=== PATIENT | female | born 1945 | race Caucasian/White ===

== ENCOUNTER 2022-04-29 17:25 | Emergency (ER) | payer MEDICARE ==
[~2022-04-29] VITALS: Ht 162.6 cm; Wt 46.0 kg
[2022-04-29 18:40] VITALS: BP 164/95
== END 2022-04-29 20:52 | disposition home or self-care (01) ==
LOC: ER 17:26
DX: S52.502A Unspecified fracture of the lower end of left radius, initial encounter for closed fracture (principal); M25.532 Pain in left wrist; H53.2 Diplopia; W19.XXXA Unspecified fall, initial encounter; Y93.89 Activity, other specified; Y92.89 Other specified places as the place of occurrence of the external cause; Y99.8 Other external cause status
CPT/HCPCS: 29125; 70450; 73110; 99284; A4565; A6449

== ENCOUNTER 2022-05-04 09:19 | Emergency (ER) | payer MEDICARE ==
[~2022-05-04] VITALS: Ht 162.6 cm; Wt 47.5 kg
[2022-05-04 10:18] VITALS: BP 145/76
== END 2022-05-04 16:14 | disposition home or self-care (01) ==
LOC: ER 09:20
DX: H53.2 Diplopia (principal)
CPT/HCPCS: 70551; 99284

== ENCOUNTER 2023-05-07 20:00 | Emergency (ER) | payer MEDICARE, OTHER ==
[~2023-05-07] VITALS: Ht 157.5 cm; Wt 53.0 kg
[2023-05-07 20:18] VITALS: BP 116/75; PULSE 68; RESP 18; TEMP 98.2; O2SAT 98
== END 2023-05-08 01:30 | disposition left against medical advice (07) ==
LOC: ER 20:01
DX: N39.0 Urinary tract infection, site not specified (principal); Z53.21 Procedure and treatment not carried out due to patient leaving prior to being seen by health care provider
CPT/HCPCS: 99281

== ENCOUNTER 2023-07-19 12:22 | Emergency (ER) | payer MEDICARE, OTHER ==
[~2023-07-19] VITALS: Ht 154.9 cm; Wt 48.4 kg
[2023-07-19 13:05] LABS: BILIRUBIN,URINE NEGATIVE (Neg); CLARITY,URINE CLOUDY (Clear); COLOR,URINE YELLOW (Yellow); GLUCOSE, URINE NEGATIVE (Neg); KETONES,URINE NEGATIVE (Neg); LEUKOCYTE ESTERASE ,URINE SMALL (Neg); NITRITES, URINE NEGATIVE (Neg); OCCULT BLOOD,URINE NEGATIVE (Neg); PROTEIN,URINE TRACE mg/dl (Neg); UROBILINOGEN,URINE 0.2 E.U/dL (0.2-1.0)
[2023-07-19 13:06] LABS: UA COLLECTION TYPE CLN CATCH MIDSTREAM
[2023-07-19 13:12] LABS: BACTERIA,URINE 4+ /HPF (Neg); MUCUS STRANDS FEW /LPF (Neg); RBC,URINE NONE SEEN /HPF (0-2); SQUAMOUS EPITHELIAL CELL,UR MANY /LPF (FEW); WBC,URINE 0-4 /HPF (0-4)
[2023-07-19 13:30] LABS: BASOPHILS % (AUTO) 0.7 % (0-1); EOSINOPHILS % (AUTO) 0.9 % (0-6); HEMATOCRIT 44.6 % (35.0-45.0); HEMOGLOBIN 15.2 g/dl (12.0-16.0); LYMPHOCYTES # (AUTO) 0.4 X10'3 (1.1-4.8); LYMPHOCYTES % (AUTO) 9.4 % (21-51); MEAN CORPUSCULAR HEMOGLOBIN 32.2 PG (27.0-31.0); MEAN CORPUSCULAR VOLUME 94.8 FL (78-98); MEAN PLATELET VOLUME 8.4 FL (7.4-10.4); MONOCYTES # (AUTO) 0.3 X10'3 (0-0.9); MONOCYTES % (AUTO) 7.8 % (2-12); NEUTROPHILS # (AUTO) 3.6 X10'3 (1.8-7.7); NEUTROPHILS % (AUTO) 81.2 % (42-75); PLATELET COUNT 168 X10'3 (140-440); RED BLOOD COUNT 4.71 X10'6 (4.20-5.60); RED CELL DISTRIBUTION WIDTH 13.4 % (11.5-14.5); WHITE BLOOD COUNT 4.4 X10'3 (4.5-11.0)
[2023-07-19 13:47] LABS: ALANINE AMINOTRANSFERASE 25 U/L (12-78); ALBUMIN 4.1 G/DL (3.4-5.0); ALBUMIN/GLOBULIN RATIO 1.5 (1.1-1.5); ALKALINE PHOSPHATASE 88 IU/L (46-116); ANION GAP 4 (8-16); ASPARTATE AMINO TRANSFERASE 26 U/L (10-37); BILIRUBIN,TOTAL 0.6 MG/DL (0.1-1.0); BLOOD UREA NITROGEN 22 MG/DL (7-18); BUN/CREATININE RATIO 26.2 (10.0-20.0); CHLORIDE 106 MMOL/L (99-107); CREATININE 0.84 MG/DL (0.40-0.90); GLUCOSE 108 MG/DL (70-104); LIPASE 54 U/L (16-77); POTASSIUM 3.8 MMOL/L (3.5-5.1); SODIUM 141 MMOL/L (135-145); TOTAL CARBON DIOXIDE 30.8 MMOL/L (24-32); TOTAL PROTEIN 6.9 G/DL (6.4-8.2); eCRCL 42 ML/MIN; eGFR 66 ML/MIN
[2023-07-20 02:58] LABS: ETHANOL < 10 MG/DL (<10); THYROID STIMULATING HORMONE 1.67 ulU/ml (0.34-4.50)
[2023-07-20] MEDS ORDERED: NO HOME MEDS (06:23)
[2023-07-20 07:17] LABS: URINE AMPHETAMINE SCREEN NEGATIVE (Neg); URINE BARBITUATE SCREEN NEGATIVE (Neg); URINE BENZODIAZEPINES SCREEN NEGATIVE (Neg); URINE CANNABINOID SCREEN NEGATIVE (Neg); URINE COCAINE SCREEN NEGATIVE (Neg); URINE METHADONE SCREEN NEGATIVE (Neg); URINE OPIATE SCREEN NEGATIVE (Neg); URINE PHENCYCLIDINE SCREEN NEGATIVE (Neg)
[2023-07-25 14:08] LABS: BILIRUBIN,URINE NEGATIVE (Neg); CLARITY,URINE SLIGHTLY CLOUDY (Clear); COLOR,URINE YELLOW (Yellow); GLUCOSE, URINE NEGATIVE (Neg); KETONES,URINE NEGATIVE (Neg); LEUKOCYTE ESTERASE ,URINE NEGATIVE (Neg); NITRITES, URINE NEGATIVE (Neg); OCCULT BLOOD,URINE TRACE-INTACT (Neg); PROTEIN,URINE NEGATIVE (Neg); UROBILINOGEN,URINE 0.2 E.U/dL (0.2-1.0)
[2023-07-25 14:19] LABS: UA COLLECTION TYPE CLN CATCH MIDSTREAM
[2023-07-25 14:20] LABS: BACTERIA,URINE 1+ /HPF (Neg); MUCUS STRANDS NONE SEEN /LPF (Neg); RBC,URINE 0-2 /HPF (0-2); SQUAMOUS EPITHELIAL CELL,UR FEW /LPF (FEW); WBC,URINE 0-4 /HPF (0-4)
[2023-07-27] MEDS ORDERED: simethicone 125mg capsule PO ONE (06:21)
[2023-08-01] MEDS ORDERED: tuberculin, purif. prot. deriv. 5 units/0.1ml ID ONE (13:45)
[2023-08-04] MEDS: nicotine 21mg patch - 24 hr TD SCH (08:00)
[2023-08-05] MEDS: nicotine 21mg patch - 24 hr TD SCH (07:58)
[2023-08-06] MEDS: nicotine 21mg patch - 24 hr TD SCH (08:00)
[2023-08-07] MEDS: nicotine 21mg patch - 24 hr TD SCH (08:00)
[2023-08-08] MEDS: nicotine 21mg patch - 24 hr TD SCH (08:00)
[2023-08-09] MEDS: nicotine 21mg patch - 24 hr TD SCH (07:58)
[2023-08-10] MEDS: nicotine 21mg patch - 24 hr TD SCH (08:00)
[2023-08-13] MEDS ORDERED: NO HOME MEDS (12:42)
[2023-08-14 19:30] VITALS: BP 122/90; PULSE 74; TEMP 97.9; O2SAT 99
[2023-08-15 07:00] VITALS: RESP 16
== END 2023-08-15 14:06 | disposition still patient (30) ==
LOC: ER 12:23
DX: F29 Unspecified psychosis not due to a substance or known physiological condition (principal); Z20.822 Contact with and (suspected) exposure to COVID-19
CPT/HCPCS: 36415; 70450; 80053; 80305; 80320; 81001; 83690; 84443; 85025; 87811; 96372; 99285

== ENCOUNTER 2024-07-12 09:46 | Emergency (ER) | payer MEDICARE, OTHER ==
[~2024-07-12] VITALS: Ht 165.1 cm; Wt 52.0 kg
[~2024-07-12 09:46] MED LIST: NO HOME MEDS
[2024-07-12] MEDS ORDERED: APIX2.5T PO (13:57)
[2024-07-12 14:21] VITALS: BP 151/84; PULSE 76; RESP 16; TEMP 98.4; O2SAT 99
== END 2024-07-12 14:21 | disposition home or self-care (01) ==
LOC: ER 09:47
DX: I82.402 Acute embolism and thrombosis of unspecified deep veins of left lower extremity (principal); F03.90 Unspecified dementia, unspecified severity, without behavioral disturbance, psychotic disturbance, mood disturbance, and anxiety
CPT/HCPCS: 99283

== ENCOUNTER 2024-08-23 12:33 | Inpatient (IN) | payer MEDICARE, OTHER ==
[~2024-08-23] VITALS: Ht 162.6 cm; Wt 125.0 kg
[~2024-08-23 12:33] MED LIST changes: +APIX2.5T PO
[2024-08-23 13:52] LABS: BASOPHILS % (AUTO) 0.8 % (0-1); EOSINOPHILS # (AUTO) 0.1 X10'3 (0-0.9); EOSINOPHILS % (AUTO) 1.3 % (0-6); HEMATOCRIT 42.1 % (35.0-45.0); HEMOGLOBIN 14.6 g/dl (12.0-16.0); LYMPHOCYTES # (AUTO) 0.6 X10'3 (1.1-4.8); LYMPHOCYTES % (AUTO) 10.6 % (21-51); MEAN CORPUSCULAR HEMOGLOBIN 32.6 PG (27.0-31.0); MEAN CORPUSCULAR HGB CONC 34.7 g/dL (33.0-36.5); MEAN CORPUSCULAR VOLUME 93.9 FL (78-98); MONOCYTES # (AUTO) 0.5 X10'3 (0-0.9); MONOCYTES % (AUTO) 9.2 % (2-12); NEUTROPHILS # (AUTO) 4.4 X10'3 (1.8-7.7); NEUTROPHILS % (AUTO) 78.1 % (42-75); PLATELET COUNT 181 X10'3 (140-440); RED BLOOD COUNT 4.48 X10'6 (4.20-5.60); RED CELL DISTRIBUTION WIDTH 13.5 % (11.5-14.5); WHITE BLOOD COUNT 5.6 X10'3 (4.5-11.0)
[2024-08-23 14:14] LABS: ALANINE AMINOTRANSFERASE 18 U/L (12-78); ALKALINE PHOSPHATASE 81 IU/L (46-116); ANION GAP 6 (8-16); ASPARTATE AMINO TRANSFERASE 19 U/L (10-37); BILIRUBIN,TOTAL 0.6 MG/DL (0.1-1.0); CHLORIDE 109 MMOL/L (99-107); POTASSIUM 3.3 MMOL/L (3.5-5.1); SODIUM 144 MMOL/L (135-145); TOTAL PROTEIN 7.3 G/DL (6.4-8.2)
[2024-08-23 14:29] LABS: ALBUMIN 3.9 G/DL (3.4-5.0); ALBUMIN/GLOBULIN RATIO 1.1 (1.1-1.5); BLOOD UREA NITROGEN 18 MG/DL (7-18); BUN/CREATININE RATIO 19.8 (10.0-20.0); CALCIUM 8.9 MG/DL (8.5-10.1); CREATININE 0.91 MG/DL (0.40-0.90); GLUCOSE 66 MG/DL (70-104); eCRCL 45 ML/MIN; eGFR 60 ML/MIN
[2024-08-23 15:57] LABS: BILIRUBIN,URINE NEGATIVE (Neg); CLARITY,URINE SLIGHTLY CLOUDY (Clear); COLOR,URINE YELLOW (Yellow); GLUCOSE, URINE NEGATIVE (Neg); KETONES,URINE NEGATIVE (Neg); LEUKOCYTE ESTERASE ,URINE SMALL (Neg); NITRITES, URINE NEGATIVE (Neg); OCCULT BLOOD,URINE TRACE-INTACT (Neg); PROTEIN,URINE NEGATIVE (Neg); UROBILINOGEN,URINE 0.2 E.U/dL (0.2-1.0)
[2024-08-23 16:10] LABS: UA COLLECTION TYPE NON-SPECIFIED
[2024-08-23 16:12] LABS: BACTERIA,URINE 3+ /HPF (Neg)
[2024-08-23 16:13] LABS: AMORPHOUS URATES 1+; MUCUS STRANDS FEW /LPF (Neg); SQUAMOUS EPITHELIAL CELL,UR MODERATE /LPF (FEW); TRANSITIONAL EPI CELLS,URINE FEW /HPF
[2024-08-23] MEDS ORDERED: magnesium Cl slow-release 64mg tablet PO PRN (17:20)
[2024-08-23] MEDS ORDERED: potassium Cl 40MEQ/1/2NS 520ml 520 ML IV PRN (17:20)
[2024-08-23] MEDS ORDERED: acetaminophen 325mg tablet PO PRN (17:20)
[2024-08-23] MEDS ORDERED: mag hydrox/Alum hydrox/simeth 30ml oral suspension PO PRN (17:20)
[2024-08-23] MEDS ORDERED: magnesium sulf-water 4G/100mL 100 ML IV PRN (17:20)
[2024-08-23] MEDS ORDERED: magnesium hydroxide 30ml (MOM) UD suspension PO PRN (17:20)
[2024-08-23] MEDS ORDERED: ondansetron/PF 4mg/2ml inj IV PRN (17:20)
[2024-08-23] MEDS ORDERED: magnesium sulf-water 2g/50mL 50 ML IV PRN (17:20)
[2024-08-23] MEDS ORDERED: potassium Cl 20 mEq SR tablet PO PRN (17:20)
[2024-08-23] MEDS ORDERED: morphine 2 MG/ML inj. syringe IV PRN (17:20)
[2024-08-23] MEDS ORDERED: DEXTROSE 15 GM of carb/4 tabs (each vial/BOTTLE has 4 tablets) PO PRN (18:35)
[2024-08-23] MEDS: normal saline 1000ml 1,000 ML IV SCH (19:00)
[2024-08-23] MEDS: docusate sod 100mg capsule PO SCH (20:00)
[2024-08-23] MEDS: K and/or MAG REPLACEMENT MC SCH (20:00)
[2024-08-23] MEDS ORDERED: PERM60CR4 (20:35)
[2024-08-23] MEDS ORDERED: APIX5TAB3 PO (20:35)
[2024-08-23] MEDS ORDERED: POTA-207 PO (20:35)
[2024-08-23] MEDS ORDERED: QUET25TA36 PO (20:35)
[2024-08-23] MEDS ORDERED: QUET50TA24 (20:35)
[2024-08-23] MEDS ORDERED: DONE-46 PO (20:35)
[2024-08-23] MEDS ORDERED: FURO20TA4 PO (20:35)
[2024-08-23 23:04] LABS: MAGNESIUM 2.3 MG/DL (1.5-2.4); POTASSIUM 3.3 MMOL/L (3.5-5.1)
[2024-08-23] MEDS: QUEtiapine 25mg tablet PO STA ×2 (23:15→23:31)
[2024-08-23] MEDS: LORazepam 2 mg/ml vial IM STA (23:32)
[2024-08-24] MEDS: CefTRIAXone/D5W-Rocephin 1gm 50 ML IV SCH (02:46)
[2024-08-24 04:37] LABS: EOSINOPHILS # (AUTO) 0.1 X10'3 (0-0.9); LYMPHOCYTES # (AUTO) 0.7 X10'3 (1.1-4.8); MEAN CORPUSCULAR HEMOGLOBIN 32.2 PG (27.0-31.0); MEAN CORPUSCULAR HGB CONC 34.3 g/dL (33.0-36.5); MONOCYTES # (AUTO) 0.5 X10'3 (0-0.9); PLATELET COUNT 134 X10'3 (140-440)
[2024-08-24 04:39] LABS: BASOPHILS % (AUTO) 0.4 % (0-1); EOSINOPHILS % (AUTO) 1.3 % (0-6); HEMATOCRIT 40.9 % (35.0-45.0); LYMPHOCYTES % (AUTO) 11.2 % (21-51); MEAN PLATELET VOLUME 9.9 FL (7.4-10.4); MONOCYTES % (AUTO) 8.2 % (2-12); NEUTROPHILS # (AUTO) 4.8 X10'3 (1.8-7.7); NEUTROPHILS % (AUTO) 78.9 % (42-75); RED BLOOD COUNT 4.35 X10'6 (4.20-5.60); RED CELL DISTRIBUTION WIDTH 13.3 % (11.5-14.5)
[2024-08-24 05:00] LABS: ALANINE AMINOTRANSFERASE 19 U/L (12-78); ALBUMIN 3.2 G/DL (3.4-5.0); ALBUMIN/GLOBULIN RATIO 0.9 (1.1-1.5); ALKALINE PHOSPHATASE 69 IU/L (46-116); ANION GAP 9 (8-16); BILIRUBIN,TOTAL 0.9 MG/DL (0.1-1.0); BLOOD UREA NITROGEN 16 MG/DL (7-18); BUN/CREATININE RATIO 25.8 (10.0-20.0); CALCIUM 8.8 MG/DL (8.5-10.1); CHLORIDE 107 MMOL/L (99-107); CREATININE 0.62 MG/DL (0.40-0.90); GLUCOSE 110 MG/DL (70-104); MAGNESIUM 2.3 MG/DL (1.5-2.4); SODIUM 141 MMOL/L (135-145); TOTAL CARBON DIOXIDE 25.2 MMOL/L (24-32); TOTAL PROTEIN 6.7 G/DL (6.4-8.2); eCRCL 66 ML/MIN; eGFR > 90 ML/MIN
[2024-08-24 05:02] LABS: ASPARTATE AMINO TRANSFERASE 39 U/L (10-37)
[2024-08-24] MEDS: furosemide 20MG tablet PO SCH (11:09)
[2024-08-24] MEDS: donepezil 5mg tablet PO SCH (11:09)
[2024-08-24 17:45] VITALS: BP 139/69; PULSE 68; RESP 16; TEMP 98; O2SAT 99
[2024-08-24 18:00] VITALS: BP 144/77; PULSE 69; RESP 17; TEMP 97.7; O2SAT 100
[2024-08-24 20:00] VITALS: RESP 17; O2SAT 100
[2024-08-24] MEDS: apixaban 5mg tablet PO SCH (20:22)
[2024-08-24] MEDS: QUEtiapine 25mg tablet PO SCH (20:22)
[2024-08-24 22:00] VITALS: BP 119/50; PULSE 78; RESP 15; TEMP 97.5; O2SAT 96
[2024-08-25 06:00] VITALS: BP 131/78; PULSE 72; RESP 18; TEMP 97.8; O2SAT 98
[2024-08-25 08:00] VITALS: RESP 16; O2SAT 94
[2024-08-25 10:00] VITALS: BP 98/80; PULSE 83; RESP 16; TEMP 98.4; O2SAT 94
[2024-08-25 11:41] LABS: BASOPHILS % (AUTO) 0.1 % (0-1); EOSINOPHILS # (AUTO) 0.1 X10'3 (0-0.9); EOSINOPHILS % (AUTO) 2.1 % (0-6); HEMATOCRIT 41.9 % (35.0-45.0); HEMOGLOBIN 14.2 g/dl (12.0-16.0); LYMPHOCYTES # (AUTO) 0.2 X10'3 (1.1-4.8); LYMPHOCYTES % (AUTO) 3.4 % (21-51); MEAN CORPUSCULAR HEMOGLOBIN 32.3 PG (27.0-31.0); MEAN CORPUSCULAR HGB CONC 33.8 g/dL (33.0-36.5); MEAN CORPUSCULAR VOLUME 95.5 FL (78-98); MONOCYTES # (AUTO) 0.2 X10'3 (0-0.9); MONOCYTES % (AUTO) 3.7 % (2-12); NEUTROPHILS # (AUTO) 5.1 X10'3 (1.8-7.7); NEUTROPHILS % (AUTO) 90.7 % (42-75); PLATELET COUNT 141 X10'3 (140-440); RED BLOOD COUNT 4.38 X10'6 (4.20-5.60); RED CELL DISTRIBUTION WIDTH 13.4 % (11.5-14.5); WHITE BLOOD COUNT 5.6 X10'3 (4.5-11.0)
[2024-08-25 11:49] LABS: ALANINE AMINOTRANSFERASE 18 U/L (12-78); ALBUMIN 3.2 G/DL (3.4-5.0); ALKALINE PHOSPHATASE 73 IU/L (46-116); ANION GAP 9 (8-16); ASPARTATE AMINO TRANSFERASE 20 U/L (10-37); BILIRUBIN,TOTAL 0.7 MG/DL (0.1-1.0); BLOOD UREA NITROGEN 14 MG/DL (7-18); BUN/CREATININE RATIO 17.1 (10.0-20.0); CALCIUM 8.2 MG/DL (8.5-10.1); CHLORIDE 108 MMOL/L (99-107); CREATININE 0.82 MG/DL (0.40-0.90); GLUCOSE 103 MG/DL (70-104); POTASSIUM 3.2 MMOL/L (3.5-5.1); SODIUM 141 MMOL/L (135-145); TOTAL CARBON DIOXIDE 24.3 MMOL/L (24-32); TOTAL PROTEIN 6.4 G/DL (6.4-8.2); eCRCL 50 ML/MIN; eGFR 67 ML/MIN
[2024-08-25] MEDS: potassium Cl 20 mEq SR tablet PO PRN (13:05)
[2024-08-25 18:00] VITALS: BP 120/86; PULSE 95; RESP 18; TEMP 99.4; O2SAT 94
[2024-08-25] MEDS: QUEtiapine 25mg tablet PO ONE (18:29)
[2024-08-25] MEDS: lactose-reduced food (Ensure Enlive) - 237ml bottle PO SCH (18:36)
[2024-08-25 20:00] VITALS: RESP 15; O2SAT 94
[2024-08-25 22:02] VITALS: BP 121/75; PULSE 86; RESP 14; TEMP 97.9; O2SAT 95
[2024-08-26 06:00] VITALS: BP 135/86; PULSE 68; RESP 14; TEMP 98.7; O2SAT 95
[2024-08-26 06:29] LABS: BASOPHILS % (AUTO) 0.5 % (0-1); EOSINOPHILS # (AUTO) 0.1 X10'3 (0-0.9); EOSINOPHILS % (AUTO) 2.6 % (0-6); HEMATOCRIT 38.8 % (35.0-45.0); HEMOGLOBIN 13.3 g/dl (12.0-16.0); LYMPHOCYTES # (AUTO) 0.3 X10'3 (1.1-4.8); LYMPHOCYTES % (AUTO) 10.1 % (21-51); MEAN CORPUSCULAR HEMOGLOBIN 32.2 PG (27.0-31.0); MEAN CORPUSCULAR HGB CONC 34.4 g/dL (33.0-36.5); MEAN CORPUSCULAR VOLUME 93.6 FL (78-98); MEAN PLATELET VOLUME 8.3 FL (7.4-10.4); MONOCYTES # (AUTO) 0.3 X10'3 (0-0.9); MONOCYTES % (AUTO) 7.7 % (2-12); NEUTROPHILS # (AUTO) 2.6 X10'3 (1.8-7.7); NEUTROPHILS % (AUTO) 79.1 % (42-75); PLATELET COUNT 132 X10'3 (140-440); RED BLOOD COUNT 4.14 X10'6 (4.20-5.60); RED CELL DISTRIBUTION WIDTH 13.4 % (11.5-14.5); WHITE BLOOD COUNT 3.3 X10'3 (4.5-11.0)
[2024-08-26 06:52] LABS: ALANINE AMINOTRANSFERASE 16 U/L (12-78); ALBUMIN 2.8 G/DL (3.4-5.0); ALKALINE PHOSPHATASE 63 IU/L (46-116); ANION GAP 9 (8-16); ASPARTATE AMINO TRANSFERASE 18 U/L (10-37); BILIRUBIN,TOTAL 0.7 MG/DL (0.1-1.0); BLOOD UREA NITROGEN 13 MG/DL (7-18); BUN/CREATININE RATIO 15.5 (10.0-20.0); CALCIUM 8.1 MG/DL (8.5-10.1); CHLORIDE 110 MMOL/L (99-107); CREATININE 0.84 MG/DL (0.40-0.90); GLUCOSE 95 MG/DL (70-104); POTASSIUM 3.2 MMOL/L (3.5-5.1); SODIUM 142 MMOL/L (135-145); TOTAL CARBON DIOXIDE 22.7 MMOL/L (24-32); TOTAL PROTEIN 5.7 G/DL (6.4-8.2); eCRCL 47 ML/MIN; eGFR 65 ML/MIN
[2024-08-26] MEDS: potassium Cl 20 mEq SR tablet PO SCH (08:00)
[2024-08-26] MEDS: QUEtiapine 25mg tablet PO SCH ×2 (09:33→15:17)
[2024-08-26] MEDS: potassium Cl 20 mEq SR tablet PO STA (09:34)
[2024-08-26 10:00] VITALS: BP 126/67; PULSE 68; RESP 15; TEMP 98.6; O2SAT 95
[2024-08-26] MEDS ORDERED: CEFD300C3 PO (11:56)
[2024-08-26] MEDS ORDERED: LACT1CAP26 PO (11:56)
== END 2024-08-26 16:10 | disposition home or self-care (01) | DRG 689 ==
LOC: ER 12:34 → UNDOADMIN 17:21 → ED HOLD 17:21 → ORTHO 4S 08-24 15:45
PROVIDERS: ADMIT Internal Medicine; ATTEND Internal Medicine
DX: N30.00 Acute cystitis without hematuria (principal); G93.41 Metabolic encephalopathy; N17.0 Acute kidney failure with tubular necrosis; E86.0 Dehydration; G30.9 Alzheimer's disease, unspecified; E87.6 Hypokalemia; E16.1 Other hypoglycemia; F02.80 Dementia in other diseases classified elsewhere, unspecified severity, without behavioral disturbance, psychotic disturbance, mood disturbance, and anxiety; Z88.6 Allergy status to analgesic agent; Z91.018 Allergy to other foods; Z79.01 Long term (current) use of anticoagulants; Z86.718 Personal history of other venous thrombosis and embolism
CPT/HCPCS: 36415; 70450; 73521; 80053; 81001; 83605; 83735; 84132; 84145; 85025; 87040; 87088; 92508; 92616; 93005; 97161; 97530; 99285; G0378; J0696; J2060; J7030

== ENCOUNTER 2024-09-17 08:18 | Emergency (ER) | payer MEDICARE, OTHER ==
[~2024-09-17] VITALS: Ht 162.6 cm; Wt 58.0 kg
[~2024-09-17 08:18] MED LIST changes: -APIX2.5T PO; +APIX5TAB3 PO; +CEFD300C3 PO; +DONE-46 PO; +FURO20TA4 PO; +LACT1CAP26 PO; -NO HOME MEDS; +PERM60CR4; +POTA-207 PO; +QUET25TA36 PO; +QUET50TA24
[2024-09-17 08:21] VITALS: TEMP 97.6
[2024-09-17 13:22] VITALS: BP 156/89; PULSE 68; RESP 15; O2SAT 97
== END 2024-09-17 13:24 | disposition home or self-care (01) ==
LOC: ER 08:18
DX: S22.32XA Fracture of one rib, left side, initial encounter for closed fracture (principal); F03.90 Unspecified dementia, unspecified severity, without behavioral disturbance, psychotic disturbance, mood disturbance, and anxiety; Z88.6 Allergy status to analgesic agent; Z79.899 Other long term (current) drug therapy; X58.XXXA Exposure to other specified factors, initial encounter; Y93.89 Activity, other specified; Y92.89 Other specified places as the place of occurrence of the external cause; Y99.8 Other external cause status
CPT/HCPCS: 70450; 71101; 99284

== ENCOUNTER 2024-12-28 16:53 | Emergency (ER) | payer MEDICARE, OTHER ==
[~2024-12-28] VITALS: Ht 162.6 cm; Wt 54.1 kg
--- NOTE | 2024-12-28 17:45 | Physician Documentation ---
History of Present Illness ~ Chief Complaint: Urinary Symptoms Stated Complaint: POSSIBLE UTI Time Seen by MD: 17:37 Primary Medical Doctor: Dr. Radha Painting in [facility]. Mental health: Dr. Jc Ybarra HPI Female with a history of severe dementia presents accompanied by her conservator due to several days of increased confusion, caregiver/conservative reports varinder ent took an at home UTI test which came back positive. Patient is reporting no symptoms however is quite confused. Family member does note that small amount of Ativan was added to patient's medication regimen over this past month that has be taken three to 4 times a week as needed for agitation but there has been no correlation between her generalized lethargy and confusion increase and this medication that they have noticed. Patient denies any pain Medication Reconciliation Allergies: Coded Allergies: aspirin (Verified Allergy, Unknown, 12/28/24) banana (Verified Allergy, Unknown, 12/28/24) Scheduled Apixaban (Eliquis), 1 TAB PO BID, (Reported) Cefdinir (Cefdinir), 1 CAP PO Q12H Donepezil Hcl (Donepezil Hcl), 1 TAB PO DAILY, (Reported) Furosemide (Furosemide), 1 TAB PO DAILY, (Reported) Lactobacillus Rhamnosus (Culturelle), 1 CAP PO DAILY Potassium Chloride* (K-Dur*), 1 TAB PO DAILY, (Reported) Quetiapine Fumarate (Quetiapine Fumarate), 1 TAB PO HS, (Reported) Miscellaneous Medications Permethrin (Permethrin), (Reported) Quetiapine Fumarate (Quetiapine Fumarate), (Reported) Past Medical History 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 GENERAL: Alert, nontoxic appearing, no apparent distress. HEENT: RESPIRATORY: No increased work of breathing, no respiratory distress, speaking in full clear sentences CHEST: CV: BACK: MUSCULOSKELETAL: SKIN: NEURO: Confused at baseline, PSYCH: General Appearance General: Patient is awake, alert, answering questions inappropriately. Slow to respond Head: Normocephalic and atraumatic. Eyes: Conjunctival normal. EOMI. PERRL. ENT: Mucous membranes moist. Neck: Supple, trachea is midline. Chest: Clear to auscultation bilaterally without rales, rhonchi, or wheezes. There is no accessory muscle use or retractions. Cardiac: RRR without murmurs, gallops, or rubs. Abd: Soft, nondistended, nontender, with normoactive bowel sounds. No guarding, rebound, or rigidity. Progress Results/Orders Results/Orders Vital Signs 12/28/24 12/28/24 12/28/24 17:14 19:13 20:45 Temp 97.7 Pulse 97 83 Resp 16 14 16 B/P (MAP) 132/68 134/85 (101) Pulse Ox 94 88 Laboratory Tests Test 12/28/24 17:49 12/28/24 20:21 White Blood Count 4.4 L Red Blood Count 4.97 Hemoglobin 15.7 Hematocrit 46.2 H Mean Corpuscular Volume 93.0 Mean Corpuscular Hemoglobin 31.6 H Mean Corpuscular Hemoglobin Concent 34.0 Red Cell Distribution Width 12.9 Platelet Count 200 Mean Platelet Volume 8.0 Neutrophils (%) (Auto) 75.2 H Lymphocytes (%) (Auto) 12.8 L Monocytes (%) (Auto) 8.2 Eosinophils (%) (Auto) 3.2 Basophils (%) (Auto) 0.6 Neutrophils # (Auto) 3.3 Lymphocytes # (Auto) 0.6 L Monocytes # (Auto) 0.4 Eosinophils # (Auto) 0.1 Basophils # (Auto) 0.0 CBC Comment Sodium Level 145 Potassium Level 4.1 Chloride Level 109 H Carbon Dioxide Level 27.7 Anion Gap 8 Blood Urea Nitrogen 25 H Creatinine 0.99 H Estimated GFR/1.73 m2 54 BUN/Creatinine Ratio 25.3 H Glucose Level 135 H Calcium Level 9.0 Total Bilirubin 0.4 Aspartate Amino Transf (AST/SGOT) 21 Alanine Aminotransferase (ALT/SGPT) 22 Alkaline Phosphatase 96 Total Protein 6.8 Albumin 3.7 Globulin 3.1 Albumin/Globulin Ratio 1.2 Chemistry Comments Urine Specimen Description Straight cath Urine Color Yellow Urine Clarity Clear Urine pH 6.0 Urine Specific [place] 1.020 Urine Protein Negative Urine Glucose (UA) Negative Urine Ketones Negative Urine Occult Blood Negative Urine Nitrite Negative Urine Bilirubin Negative Urine Urobilinogen 0.2 Urine Leukocyte Esterase Negative Urine Culture Indicated Not ind Volume Urine Centrifuged 10 ml Urine Comment Medical Decision Making Findings MSE performed in triage and patient returned to ED lobby by nursing staff Patient presents to the emergency room with gradual increase in confusion over the past month. Differentials include but are not limited to metabolic encephalopathy, medication reaction/side effect, urinary tract infection, electrolyte disturbances therefore emergent labs ordered which were reassuring for no major pathologic derangements. Urine is clear. Neurologic exam is reassuring for no focal neural deficits however patient was confused. Offered admission for possible stroke workup although this is very low yield given patient's gradual increase over the past month. After discussing the risks and benefits and alternatives family and janitor caretaker would prefer patient to go back to her living facility for continued workup and we will return if symptoms worsen or change. Departure Disposition: HOME / SELF CARE / HOMELESS Impression: Primary Impression: Altered mental status Condition: Fair Discharge Instructions: Altered Mental Status Referrals: NO PRIMARY CARE PROVIDER (PCP) Education Educated: Family Educated regarding: need for follow up Signature Scribe Signature: No scribe Attestation: The note accurately reflects work and decisions made by me.Sebastian Puga MD 12/28/24 21:04 LONNY NOEL December 28, 2024 17:45 SEBASTIAN PUGA MD December 28, 2024 20:29
[2024-12-28 17:58] LABS: BASOPHILS % (AUTO) 0.6 % (0-1); EOSINOPHILS # (AUTO) 0.1 X10'3 (0-0.9); EOSINOPHILS % (AUTO) 3.2 % (0-6); HEMATOCRIT 46.2 % (35.0-45.0); HEMOGLOBIN 15.7 g/dl (12.0-16.0); LYMPHOCYTES # (AUTO) 0.6 X10'3 (1.1-4.8); LYMPHOCYTES % (AUTO) 12.8 % (21-51); MEAN CORPUSCULAR HEMOGLOBIN 31.6 PG (27.0-31.0); MONOCYTES # (AUTO) 0.4 X10'3 (0-0.9); MONOCYTES % (AUTO) 8.2 % (2-12); NEUTROPHILS # (AUTO) 3.3 X10'3 (1.8-7.7); NEUTROPHILS % (AUTO) 75.2 % (42-75); PLATELET COUNT 200 X10'3 (140-440); RED BLOOD COUNT 4.97 X10'6 (4.20-5.60); RED CELL DISTRIBUTION WIDTH 12.9 % (11.5-14.5); WHITE BLOOD COUNT 4.4 X10'3 (4.5-11.0)
[2024-12-28 18:15] LABS: ALANINE AMINOTRANSFERASE 22 U/L (12-78); ALBUMIN 3.7 G/DL (3.4-5.0); ALBUMIN/GLOBULIN RATIO 1.2 (1.1-1.5); ALKALINE PHOSPHATASE 96 IU/L (46-116); ANION GAP 8 (8-16); ASPARTATE AMINO TRANSFERASE 21 U/L (10-37); BILIRUBIN,TOTAL 0.4 MG/DL (0.1-1.0); BLOOD UREA NITROGEN 25 MG/DL (7-18); BUN/CREATININE RATIO 25.3 (10.0-20.0); CHLORIDE 109 MMOL/L (99-107); CREATININE 0.99 MG/DL (0.40-0.90); GLUCOSE 135 MG/DL (70-104); POTASSIUM 4.1 MMOL/L (3.5-5.1); SODIUM 145 MMOL/L (135-145); TOTAL CARBON DIOXIDE 27.7 MMOL/L (24-32); TOTAL PROTEIN 6.8 G/DL (6.4-8.2); eCRCL 39 ML/MIN; eGFR 54 ML/MIN
[2024-12-28 19:13] VITALS: BP 134/85
[2024-12-28 20:39] LABS: BILIRUBIN,URINE NEGATIVE (Neg); CLARITY,URINE CLEAR (Clear); COLOR,URINE YELLOW (Yellow); GLUCOSE, URINE NEGATIVE (Neg); KETONES,URINE NEGATIVE (Neg); LEUKOCYTE ESTERASE ,URINE NEGATIVE (Neg); NITRITES, URINE NEGATIVE (Neg); OCCULT BLOOD,URINE NEGATIVE (Neg); PROTEIN,URINE NEGATIVE (Neg); UROBILINOGEN,URINE 0.2 E.U/dL (0.2-1.0)
[2024-12-28 20:45] LABS: UA COLLECTION TYPE STRAIGHT CATH
[2024-12-28 21:43] VITALS: PULSE 89; RESP 14; TEMP 97.7; O2SAT 95
== END 2024-12-28 21:44 | disposition home or self-care (01) ==
LOC: ER 16:54
DX: R41.82 Altered mental status, unspecified (principal); F03.C0 Unspecified dementia, severe, without behavioral disturbance, psychotic disturbance, mood disturbance, and anxiety; N39.0 Urinary tract infection, site not specified; Z88.6 Allergy status to analgesic agent; Z88.8 Allergy status to other drugs, medicaments and biological substances
CPT/HCPCS: 36415; 80053; 81003; 85025; 99283; A4615; C1758